=== PATIENT | male | born 2000 | race Caucasian/White ===

== ENCOUNTER 2023-12-11 21:42 | Emergency (ER) | payer SELFPAY ==
[~2023-12-11] VITALS: Ht 167.6 cm; Wt 68.0 kg
[2023-12-11 21:54] VITALS: BP 125/67; TEMP 98; O2SAT 98
[2023-12-11 21:59] VITALS: PULSE 61; RESP 18
[2023-12-11] MEDS ORDERED: NAPR-1176 MT (23:59)
== END 2023-12-12 02:00 | disposition home or self-care (01) ==
LOC: ER 22:19
DX: M70.51 Other bursitis of knee, right knee (principal)
CPT/HCPCS: 73560; 99283

== ENCOUNTER 2024-07-07 19:57 | Emergency (ER) | payer SELFPAY ==
[~2024-07-07] VITALS: Ht 167.6 cm; Wt 73.0 kg
[~2024-07-07 19:57] MED LIST: NAPR-1176 MT
[2024-07-07 19:59] VITALS: PULSE 80; RESP 16; O2SAT 100
[2024-07-07 20:00] VITALS: BP 119/71; TEMP 99.5; O2SAT 99
[2024-07-07] MEDS ORDERED: KETOROLAC 15MG/ML VIAL IM ONE (23:15)
== END 2024-07-08 07:37 | disposition home or self-care (01) ==
LOC: ER 19:57
DX: S09.90XA Unspecified injury of head, initial encounter (principal); Z79.1 Long term (current) use of non-steroidal anti-inflammatories (NSAID); X58.XXXA Exposure to other specified factors, initial encounter; Y93.89 Activity, other specified; Y92.89 Other specified places as the place of occurrence of the external cause; Y99.8 Other external cause status
CPT/HCPCS: 99281

== ENCOUNTER 2024-08-09 21:41 | Emergency (ER) | payer OTHER ==
[~2024-08-09] VITALS: Ht 172.7 cm; Wt 69.0 kg
[2024-08-09 21:44] VITALS: O2SAT 98
[2024-08-09 22:02] VITALS: TEMP 36.9; O2SAT 100
[2024-08-09 22:21] VITALS: BP 124/81; PULSE 65; RESP 16
[2024-08-09] MEDS: KETOROLAC 15MG/ML VIAL IM ONE (22:21)
== END 2024-08-09 23:07 | disposition home or self-care (01) ==
LOC: ER 21:41
DX: S92.251A Displaced fracture of navicular [scaphoid] of right foot, initial encounter for closed fracture (principal); V89.2XXA Person injured in unspecified motor-vehicle accident, traffic, initial encounter; Y93.9 Activity, unspecified; Y92.89 Other specified places as the place of occurrence of the external cause; Y99.8 Other external cause status
CPT/HCPCS: 99283; 73130; 29125; 96372; J1885; 29515